=== PATIENT | male | born 1990 | race Caucasian/White ===

== ENCOUNTER 2020-11-01 09:38 | Emergency (ER) | payer OTHER, SELFPAY ==
[2020-11-01 09:53] VITALS: BP 147/75; PULSE 90; RESP 18; TEMP 36.9; O2SAT 98
--- NOTE | 2020-11-01 09:56 | ED.GENADULT ---
HPI - General Adult General Chief complaint: Skin/Abscess/Foreign Body Stated complaint: Rash and itching on Legs Time Seen by Provider: 11/01/20 09:57 Source: patient and RN notes reviewed Mode of arrival: ambulatory Limitations: no limitations History of Present Illness HPI narrative: 30-year-old male presents with complaints of red, raised, itching, burning, rash to bilateral lower legs and several areas to the left arm for the past 7 days. ?Abe reports doing yard work (cutting grass and pulling weeds) on Sunday or prior to the start of the rash, notices a rash 1-2 days later with increasing rash and itching daily. ?Benadryl, Hydrocortisone cream, diaper rash, and calamine lotion without relief. Denies new detergent, personal hygiene products, or laundry detergent. ?No new foods or medications. ?No swelling, bleeding, or drainage. ?Denies fever or chills, headaches, weakness, fatigue, myalgia, facial swelling, or tongue swelling. ?Denies chest pain or dyspnea. Denies nausea, vomiting, and abdominal pain. ?Tolerating liquids well. ?Remains active. ?The patient reports he has not been diagnosed with COVID-19. ?The patient reports he received 2 COVID-19 vaccines, name?of vaccines unknown at this time.? The patient reports he is not waiting for the results of a COVID-19 lab test. ?The patient reports he does not have a new or worsening cough or shortness of breath. ?The patient reports he does not have any rhinorrhea, congestion, loss of taste or smell, sore throat, and diarrhea. ?Denies recent traveling. ?Denies concerns for COVID-19 or exposures. ?At this time, the patient is not suspected of having COVID-19.? Some parts of this dictation were generated by voice recognition software and may contain typographical and/or grammatical inaccuracies. Related Data Home Medications Medication Instructions Recorded Confirmed No Home Medications 11/01/20 11/01/20 Allergies Allergy/AdvReac Type Severity Reaction Status Date / Time NKDA Allergy Mild Uncoded 01/17/10 11:09 Review of Systems Review of Systems: CONSTITUTIONAL: Denies fever, chills, sweats. EYES: Denies visual changes, redness, discharge. ENT: Denies rhinorrhea, congestion, sore throat, otalgia. CARDIOVASCULAR: Denies chest pain, palpitations, edema. RESPIRATORY: Denies dyspnea, wheezing, cough. GASTROINTESTINAL: Denies abdominal pain, nausea, vomiting, diarrhea. GENITOURINARY: Denies dysuria, hematuria, abnormal discharge. SKIN: Complains of raised, red, burning, and itching rash to bilateral lower extremities and LT arm. Denies drainage. MUSCULOSKELETAL: Denies acute back pain, joint pain, or myalgia. NEUROLOGIC: Denies numbness or focal weakness. PSYCHIATRIC: Denies anxiety or depression. All other systems reviewed are negative, except as documented in HPI. REPLACED BY [facility] Past Medical History Medical History (Updated 11/02/20 @ 00:01 by Jose Arana) No significant past medical history Surgical History Surgical History (Updated 11/01/20 @ 10:16 by NANCY Vyas) History of adenoidectomy History of tonsillectomy Family History Family History (Updated 11/01/20 @ 10:17 by NANCY Vyas) Father Alive and well Mother Rheumatoid arthritis Social History Social History (Updated 11/01/20 @ 10:18 by NANCY Vyas) Smoking status: Never smoker Tobacco type: cigarettes Second hand tobacco smoke exposure: No Alcohol intake: current Substance use: never Substance use type: does not use Gender identity (if verbalized by the patient): Male Comments At time of signature, agree with nurse past medical, surgical, social, and family history. There is no relevant family history pertinent to the presenting complaint. Exam Narrative: GENERAL: This is a well-nourished, well-developed patient, in no apparent distress. Talks in full sentences and ambulates with steady gait without dyspnea. HEAD: Normo
[2020-11-01 10:29] VITALS: BP 160/90
== END 2020-11-01 10:29 | disposition home or self-care (01) ==
PROVIDERS: Emergency Provider Nurse Practitioner Family
DX: L23.7 Allergic contact dermatitis due to plants, except food (principal)
CPT/HCPCS: 99213; G0463

== ENCOUNTER 2020-11-08 08:48 | Outpatient (CLI) | payer OTHER, SELFPAY ==
[2020-11-08 09:25] LABS: Basophils Percent Auto 0.1 % (0.2-1.2); Eosinophils Absolute Auto 0.1 K/mm3 (0-0.3); Hematocrit 44.6 % (42.0-52.0); Hemoglobin 15.4 g/dL (14.0-18.0); Immature Granulocyte Absolute 0.02 K/mm3 (0.00-0.031); Immature Granulocyte Percent A 0.3 % (0-0.5); Lymphocytes Absolute Auto 2.36 K/mm3 (0.9-3.2); Lymphocytes Percent Auto 32.6 % (18.3-44.2); Mean Corpuscular HGB Conc 34.5 g/dl (32-36); Mean Corpuscular Hemoglobin 30.2 pg (26-34); Mean Corpuscular Volume 87.5 fl (80-100); Mean Platelet Volume 8.4 fl (7.4-10.4); Monocytes Absolute Auto 0.5 K/mm3 (0.1-0.6); Monocytes Percent Auto 7.5 % (2.6-8.5); Neutrophils Absolute Auto 4.2 K/mm3 (1.3-6.7); Neutrophils Percent Auto 58.5 % (45.5-73.1); Platelet Count Result 238 k/mm3 (150-375); White Blood Count 7.2 K/mm3 (4.5-10.0)
[2020-11-08 09:28] LABS: Add Urine Microscopic? YES; Appearance Urine Clear (Clear); Bilirubin Urine Negative (Negative); Blood Urine Negative (Negative); Color Urine Yellow (Yellow); Glucose Urine UA Negative (Negative); Ketones Urine Negative (Negative); Leukocyte Esterase Ur Negative LEU/UL (NEGATIVE); Mucus Urine Rare /lpf; Nitrate Urine Negative (Negative); Protein Urine 1+ mg/dL (Negative); RBC Urine 0-2 /hpf (0-2); Specific Grav Ur 1.025 (1.001-1.035); Urobilinogen Urine Negative mg/dL (<2.0); WBC Urine 0-3 /hpf (0-3)
[2020-11-08 09:51] LABS: Alanine Aminotransferase 21 U/L (4-50); Albumin Level 4.5 g/dL (3.5-5.1); Alkaline Phosphatase 57 U/L (38-126); Anion Gap 7 mmol/L (8-16); Aspartate Amino Transferase 18 U/L (17-59); Bilirubin,Total 0.6 mg/dL (0.2-1.3); Blood Urea Nitrogen 19 mg/dL (9-20); Calcium 9.6 mg/dL (8.4-10.2); Carbon Dioxide 31 mmol/L (22-30); Chloride 96 mmol/L (98-107); Cholesterol 129 mg/dL (0-200); Estimated Glomerular Filt Rate > 60; Glucose 94 mg/dL (65-110); HDL Direct 60 mg/dL; Potassium 3.8 mmol/L (3.4-5.0); Sodium 134 mmol/L (137-145); Triglycerides 73 mg/dL (<150)
[2020-11-08 10:02] LABS: LDL Cholesterol Direct 52 mg/dL
[2020-11-08 10:20] LABS: Thyroid Stimulating Hormone 0.682 uIU/mL (0.465-4.680)
== END 2020-11-08 08:49 | disposition home or self-care (01) ==
PROVIDERS: PCP Family Medicine; Visit Provider Family Medicine
DX: I10 Essential (primary) hypertension (principal); Z13.220 Encounter for screening for lipoid disorders
CPT/HCPCS: 36415; 80053; 80061; 81001; 84443; 85025

== ENCOUNTER 2021-11-29 09:22 | Outpatient (CLI) | payer OTHER, SELFPAY ==
[2021-11-29 09:35] LABS: Basophils Percent Auto 0.2 % (0.2-1.2); Eosinophils Absolute Auto 0.2 K/mm3 (0-0.3); Eosinophils Percent Auto 3.5 % (0-4.4); Hematocrit 44.3 % (42.0-52.0); Hemoglobin 14.8 g/dL (14.0-18.0); Immature Granulocyte Absolute 0.01 K/mm3 (0.00-0.031); Immature Granulocyte Percent A 0.2 % (0-0.5); Lymphocytes Absolute Auto 1.79 K/mm3 (0.9-3.2); Lymphocytes Percent Auto 28.4 % (18.3-44.2); Mean Corpuscular HGB Conc 33.4 g/dl (32-36); Mean Corpuscular Hemoglobin 30.5 pg (26-34); Mean Corpuscular Volume 91.3 fl (80-100); Mean Platelet Volume 8.4 fl (7.4-10.4); Monocytes Absolute Auto 0.6 K/mm3 (0.1-0.6); Monocytes Percent Auto 9.7 % (2.6-8.5); Neutrophils Absolute Auto 3.7 K/mm3 (1.3-6.7); Platelet Count Result 203 k/mm3 (150-375); Red Blood Count 4.85 M/mm3 (4.6-6.20); Red Cell Distribution Width 12.7 % (11.5-14.5); White Blood Count 6.3 K/mm3 (4.5-10.0)
[2021-11-29 09:54] LABS: Alanine Aminotransferase 25 U/L (6-50); Albumin Level 4.5 g/dL (3.5-5.1); Alkaline Phosphatase 67 U/L (38-126); Anion Gap 8 mmol/L (8-16); Aspartate Amino Transferase 28 U/L (17-59); Bilirubin,Total 0.5 mg/dL (0.2-1.3); Blood Urea Nitrogen 18 mg/dL (9-20); Calcium 9.4 mg/dL (8.4-10.2); Carbon Dioxide 31 mmol/L (22-30); Chloride 101 mmol/L (98-107); Estimated Glomerular Filt Rate 59; Glucose 81 mg/dL (65-110); Potassium 4.2 mmol/L (3.4-5.0); Sodium 140 mmol/L (137-145)
[2021-11-29 10:22] LABS: Free T4 Free Thyroxine 1.07 ng/mL (0.78-2.19)
[2021-11-29 10:35] LABS: Thyroid Stimulating Hormone 0.506 uIU/mL (0.465-4.680); Total Triiodothyronine (T3) 0.97 NG/ML (0.97-1.69)
== END 2021-11-29 09:23 | disposition home or self-care (01) ==
PROVIDERS: PCP Family Medicine; Visit Provider Nurse Practitioner Gerontology
DX: I10 Essential (primary) hypertension (principal)
CPT/HCPCS: 36415; 80053; 84439; 84443; 84480; 85025

== ENCOUNTER 2021-12-14 09:33 | Outpatient (CLI) | payer OTHER, SELFPAY ==
[2021-12-14 10:02] LABS: Anion Gap 12 mmol/L (8-16); Blood Urea Nitrogen 15 mg/dL (9-20); Calcium 9.6 mg/dL (8.4-10.2); Carbon Dioxide 32 mmol/L (22-30); Chloride 98 mmol/L (98-107); Estimated Glomerular Filt Rate > 60; Glucose 98 mg/dL (65-110); Potassium 4.4 mmol/L (3.4-5.0); Sodium 142 mmol/L (137-145)
== END 2021-12-14 09:34 | disposition home or self-care (01) ==
PROVIDERS: PCP Family Medicine; Visit Provider Nurse Practitioner Gerontology
DX: R79.89 Other specified abnormal findings of blood chemistry (principal)
CPT/HCPCS: 36415; 80048

== ENCOUNTER 2024-02-18 07:10 | Outpatient (CLI) | payer OTHER, SELFPAY ==
[2024-02-18 07:51] LABS: Basophils Percent Auto 0.2 % (0.2-1.2); Eosinophils Absolute Auto 0.3 K/mm3 (0-0.3); Eosinophils Percent Auto 7.5 % (0-4.4); Hematocrit 43.6 % (42.0-52.0); Hemoglobin 14.7 g/dL (14.0-18.0); Immature Granulocyte Absolute 0.01 K/mm3 (0.00-0.031); Immature Granulocyte Percent A 0.2 % (0-0.5); Lymphocytes Absolute Auto 1.85 K/mm3 (0.9-3.2); Mean Corpuscular HGB Conc 33.7 g/dl (32-36); Mean Corpuscular Hemoglobin 30.6 pg (26-34); Mean Corpuscular Volume 90.6 fl (80-100); Mean Platelet Volume 8.5 fl (7.4-10.4); Monocytes Absolute Auto 0.4 K/mm3 (0.1-0.6); Monocytes Percent Auto 8.6 % (2.6-8.5); Neutrophils Absolute Auto 1.8 K/mm3 (1.3-6.7); Neutrophils Percent Auto 41.5 % (45.5-73.1); Platelet Count Result 211 k/mm3 (150-375); Red Blood Count 4.81 M/mm3 (4.6-6.20); Red Cell Distribution Width 12.6 % (11.5-14.5); White Blood Count 4.4 K/mm3 (4.5-10.0)
[2024-02-18 08:20] LABS: LDL Cholesterol Direct 55 mg/dL
[2024-02-18 08:28] LABS: Alanine Aminotransferase 34 U/L (6-50); Albumin Level 4.3 g/dL (3.5-5.1); Alkaline Phosphatase 60 U/L (38-126); Anion Gap 3 mmol/L (4-12); Aspartate Amino Transferase 26 U/L (17-59); Bilirubin,Total 0.6 mg/dL (0.2-1.3); Blood Urea Nitrogen 20 mg/dL (9-20); Calcium 9.2 mg/dL (8.4-10.2); Carbon Dioxide 32 mmol/L (22-30); Chloride 101 mmol/L (98-107); Cholesterol 160 mg/dL (0-200); Estimated Glomerular Filt Rate > 60; Glucose 98 mg/dL (65-110); HDL Direct 61 mg/dL; Potassium 4.3 mmol/L (3.4-5.0); Sodium 136 mmol/L (137-145); Triglycerides 116 mg/dL (<150)
== END 2024-02-18 07:11 | disposition home or self-care (01) ==
PROVIDERS: PCP Family Medicine; Visit Provider Student in an Organized Health Care Education/Training Program
DX: I10 Essential (primary) hypertension (principal)
CPT/HCPCS: 36415; 80053; 80061; 85025

== ENCOUNTER 2024-02-28 08:51 | Outpatient (CLI) | payer OTHER, SELFPAY | END 2024-02-28 08:52 | disposition home or self-care (01) | LOC: ANHAUDIO 08:52 | PROVIDERS: PCP Family Medicine; Visit Provider Physician Assistant | DX: H91.90 Unspecified hearing loss, unspecified ear (principal) | CPT/HCPCS: 92557; 92567 ==

== ENCOUNTER 2024-10-03 08:29 | Outpatient (CLI) | payer OTHER, SELFPAY ==
--- OUTSIDE RECORDS SUMMARY | 2024-10-03 08:33 | XMS_ITS | Encounter Summary ---
Author Organization [facility] Address [address] [place] [address] Phone Care Team Providers Care Wind Turbine Performance Engineer Name Role Phone Provider, None Primary Care Provider Unavailabl e Encounter Details Date Type Department Care Team (Late st Contact Info) Description 11/02/2021 Lab Requisition [facility] [address] [place] [id number] Carin Fang, BATTERBOARD SETTER, TAP PULLER [address] [place] [address] Encounter for pre-employment examination Social History Tobacco Use Types Packs/Day Years Used Date Smoking Tobacco: Never Assessed Sex and Gender Information Value Date Recorded Sex Assigned at Not on file Legal Sex Male 4:28 PM CDT Gender Identity Not on file Sexual Orientation Not on file COVID-19 Exposure Response Date Recorded In the last 10 days, have yo u been in contact with someone who was confirmed or suspected to have Coronavirus/COVID-19? No / Unsure 11/02/2021 9:49 AM CDT documented as of this encounter Plan of Treatment Not on file documented as of this encounter Procedures Procedure Name Priority Date/Time Associated Diagnosis Comments QUANTIFERON-TB GOLD PLUS Routine 11/02/2021 10:00 AM CDT Encounter for pre-employment examination MMRV PANEL Routine 11/02/2021 10:00 AM CDT Encounter for pre-employment examination MUMPS IGG Routine 11/02/2021 10:00 AM CDT Encounter for pre-employment examination HERPES ZOSTER (VARICELLA) IGG Routine 11/02/2021 10:00 AM CDT Encounter for pre-employment examination RUBEOLA (MEASLES) IGG Routine 11/02/2021 10:00 AM CDT Encounter for pre-employment examination RUBELLA IMMUNITY IGG Routine 11/02/2021 10:00 AM CDT Encounter for pre-employment examination HEPATITIS B SURFACE ANTIBODY (HBSAB) Routine 11/02/2021 10:00 AM CDT Encounter for pre-employment examination documented in this encounter Results * HERPES ZOSTER (VARICELLA) IGG (11/02/2021 10:00 AM CDT) VARICELLA ZOSTER IGG 4.7 >=1.1 AI 11/02/2021 11:[address] [facility] Blood No Phlebotomy Charged / Unknown 11/02/2021 10:00 AM CDT 11/02/2021 12:[address] [facility] - 11/02/2021 11:11 PM CDT <= 0.8 Negative. No detectable VZV IgG antibody. 0.9 - 1.0 Equivocal >=1.1 Positive Antibody testing was performed by multiplex flow immunoassay on the [employer] platform. us Carin Fang BATTERBOARD SETTER, TAP PULLER IMMUNOLOGY ORDERABL ES Final Result Performing Organization Address City/State/[facility] Co de Phone Number [facility] [address] [place] [address], * RUBEOLA (MEASLES) IGG (11/02/2021 10:00 AM CDT) MEASLES AB IGG 4.0 >=1.1 AI 11/02/2021 11:[address] [facility] Blood No Phlebotomy Charged / Unknown 11/02/2021 10:00 AM CDT 11/02/2021 12:[address] [facility] - 11/02/2021 11:11 PM CDT <= 0.8 Negative. No detectable Measles IgG antibody. 0.9 - 1.0 Equivocal >=1.1 Positive Antibody testing was performed by multiplex flow immunoassay on the [employer] platform. us Carin L Behrends BATTERBOARD SETTER, TAP PULLER IMMUNOLOGY ORDERABL ES Final Result Performing Organization Address [facility] Co de Phone Number [facility] [address] [place] [address], [place] * RUBELLA IMMUNITY IGG (11/02/2021 10:00 AM CDT) RUBELLA IMMUNITY Immune Immune, Invalid 11/02/2021 11:[address] [facility] Blood No Phlebotomy Charged / Unknown 11/02/2021 10:00 AM CDT 11/02/2021 12:[address] [facility] - 11/02/2021 11:11 PM CDT Antibody testing was performed by multiplex flow immunoassay on the [employer] platform. us Braune Jared Behnathalie BATTERBOARD SETTER, TAP PULLER CHEMISTRY ORDERABLE S Final Result Performing Organization Address [facility] Co de Phone Number [facility] [address] [place] [address], [place] * MUMPS IGG (11/02/2021 10:00 AM CDT) Mumps Ab IgG 1.3 >=1.1 AI 11/02/2021 11:[address] [facility] Blood No Phlebotomy Charged / Unknown 11/02/2021 10:00 AM CDT 11/02/2021 12:[address] [facility] - 11/02/2021 11:11 PM CDT <= 0.8 Negative. No detectable Mumps IgG antibody. 0.9 - 1.0 Equivocal >=1.1 Positive Antibody testing was performed by multiplex flow immunoassay on the [employer] platform. us Carin L Behrends BATTERBOARD SETTER, TAP PULLER IMMUNOLOGY ORDERABL ES Final Result [facility] [address] [place] [address], * QUANTIFERON-TB GOLD PLUS (11/02/2021 10:00 AM CDT) NIL CONTROL 0.01 <8.01 IU/mL 11/05/2021 8:[address] [facility] TB ANTIGEN 1 0.00 <0.35 IU/mL 11/05/2021 8:[address] [facility] TB ANTIGEN 2 0.00 <0.35 IU/mL 11/05/2021 8:[address] [facility] MITOGEN CONTROL 9.48 >0.49 IU/mL 11/06/19 8:[address] [facility] INTEPRETATION TB NEGATIVE NEGATIVE, NEGATIVE (TB antigen response less than 25% of internal negative control value) 11/05/2021 8:[address] [facility] Comment:No immune response t o Mycobacterium tuberculosis antigens was noted. M. tuberculosis infection unlikely. Blood No Phlebotomy Charged / Unknown 11/02/2021 10:00 AM CDT 11/02/2021 12:[address] [facility] - 11/05/2021 8:31 AM CDT A POSITIVE QUANTIFERON-TB GOLD PLUS RESULT SHOULD NOT BE THE SOLE OR DEFINITIVE BASIS FOR DETERMINING INFECTION WITH M.TUBERCULOSIS. Diagnosing or excluding tuberculosis disease, and assessing the probability of LTBI, requires a combination of epidemiological, historical, medical and diagnostic findings (e.g., acid fast bacilli (AFB) smear and culture, chest xray) that should be taken into account when interpreting QFT-Plus results. Furthermore, the magnitude of the measured gamma interferon level cannot be correlated to stage or degree of infection, level of immune responsiveness, or likelihood for progression to active disease. The Nil control adjusts for background (e.g., elevated levels of circulating gamma interferon or presence of heterophile antibodies). The Mitogen control serves as an internal positive control and verifies each specimen tested can produce a gamma interferon response. Low mitogen may occur with insufficient lymphocytes, reduced lymphocyte activity due to improper specimen handling, filling/mixing of the mitogen tube, or inability of the patient's lymphocytes to generate gamma interferon. Infection with other Mycobacteria, including M. kansasii, M. szulgai, and M. marinum, may cause false positive results. A negative QuantiFERON-TB Gold Plus result does not preclude the possibility of M. tuberculosis infection or tuberculosis disease: false negative results can be due to incorrect blood sample collection/ improper handling of the specimen, stage of infection (e.g., specimen obtained prior to the development of cellular immune response), co-morbid conditions which affect immune function, or other individual immunological factors. The minimum number of lymphocytes required for a reliable test has not been established and may also be variable. Diagnostic testing for Mycobacterium tuberculosis using Interferon Gamma Release Assays should follow applicable published guidelines, including when testing in populations such as children, women, and HIV-infected or otherwise immunocompromised individuals. https://www.cdc.gov/tb/publications/guidelines/testing.htm Carin Fang APRN, CNP IMMUNOLOGY ORDERABL ES Final Result Performing Organization Address City/[facility] Co de Phone Number [facility] [address] [place] [address], [place] * HEPATITIS B SURFACE ANTIBODY (HBSAB) (11/02/2021 10:00 AM CDT) HEPATITIS B SURFACE ANTIBODY 44.50 mIU/mL [facility] ARCH [id number] B 11/02/2021 11:[address] [facility] Comment: Detected Range: >12.00 Individual is considered immune to HBV infection Blood No Phlebotomy Charged / Unknown 11/02/2021 10:00 AM CDT 11/02/2021 12:41 PM CDT Carin Fang APRN, CNP CHEMISTRY ORDERABLE S Final Result Performing Organization Address City/[facility] Co de Phone Number [facility] [address] [place] [address], [place] documented in this encounter Visit Diagnoses Diagnosis Encounter for pre-employment examination Health examination of defined subpopulation documented in this encounter Care Teams Wind Turbine Performance Engineer Relationship Specialty Start Date End Date Provider, None [place] PCP - General 11/02/21 documented as of this encounter
--- OUTSIDE RECORDS SUMMARY | 2024-10-03 08:33 | XMS_ITS | Clinical Summary ---
Author Organization [facility] Address [address] [place] [address] Phone Care Team Providers Care Division Chief Name Role Phone Provider, None Primary Care Provider Unavailabl e Social History Tobacco Use Types Packs/Day Years Used Date Smoking Tobacco: Never Assessed Sex and Gender Information Value Date Recorded Sex Assigned at Not on file Legal Sex Male 4:28 PM CDT Gender Identity Not on file Sexual Orientation Not on file Plan of Treatment Health Maintenance Due Date Last Done Comments Hepatitis C Virus (HCV) Screening 1989 TdaP Immunization 1989 Human Papillomavirus (HPV) Immunization (1 - Male 3-dose series) 2004 Hepatitis B Immunization (1 of 3 - 19+ 3-dose series) 2008 SARS-COV-2 Immunization ( season) 2023 Influenza Immunization (#1) 11/17/202412/17, 12/27/2017, 01/18/2016 Respiratory Syncytial Virus (RSV) Immunization (Adult) (1 - 1-dose 75+ series) 2064 Meningococcal Immunization (ACWY) Aged Out No longer eligible b ased on patient's age to complete this topic Pneumococcal Immunization Combined Aged Out No longer eligible b ased on patient's age to complete this topic Rotavirus Immunization Aged Out No lo nger eligible based on patient's age to complete this topic Care Teams Division Chief Relationship Specialty Start Date End Date Provider, None [place] PCP - General 11/02/21
--- OUTSIDE RECORDS SUMMARY | 2024-10-03 08:34 | XMS_ITS | Clinical Summary ---
Author Organization [facility] Address [address] [place] [address] Care Team Providers Care Senior Design Engineering Specialist Name Role Phone Myranda Piper NP Primary Care Provider [phone] Allergies No known active allergies Medications No known medications Active Problems Problem Noted Date Diagnosed Date Impaired hearing 02/05/2019 Assessment & Plan (02/05/2019 9:38 AM SINGER BACK TENDER): Referred to audiology Family history of colon cancer 05/29/2018 Overview (05/29/2018): Maternal grandmother Family history of heart failure 05/29/2018 Family history of polyps in the colon 05/29/2018 Overview (05/29/2018): Mother Class 1 obesity due to exces s calories without serious comorbidity with body mass index (BMI) of 30.0 to 30.9 in adult 05/29/2018 Assessment & Plan (05/29/2018 8:45 AM CDT): Obesity is newly identified. Discussed the patient's BMI. The BMI is above average; BMI management plan is completed. General weight loss/lifestyle modification strategies discussed (elicit support from others; identify saboteurs; non-food rewards, etc). Immunizations Immunization Administration Dates Next Due Influenza, Quadrivalent, Nathalie l Culture-based MDCK, Preservative Free, Antibiotic Free, Intramuscular 12/27/2017 Influenza, Quadrivalent, Split, Intramuscular Influenza, Quadrivalent, Spl it, Preservative Free, Intramuscular 12/26/2018 Surgical History Surgery Date Site/Laterality Comments TONSILLECTOMY Tonsillectomy Family History Medical History Relation Name Comments Heart disease Paternal Grandfather Relation Name Status Comments Father Alive Mother Alive Paternal Grandfather Social History Tobacco Use Types Packs/Day Years Used Date Smoking Tobacco: Former Smokeless Tobacco: Never PHQ-2 Answer Date Recorded PHQ-2 Score 0 11/08/2018 Sex and Gender Information Value Date Recorded Sex Assigned at Not on file Legal Sex Male 6:50 AM SINGER BACK TENDER Gender Identity Not on file Sexual Orientation Not on file Obstetrics History Last Filed Vital Signs Vital Sign Reading Time Taken Comments Blood Pressure 122/78 03/31/2019 1:35 PM SINGER BACK TENDER Pulse 69 03/31/2019 1:35 PM SINGER BACK TENDER Temperature - - Respiratory Rate 12 05/29/2018 8:03 AM CDT Oxygen Saturation 100% 03/31/2019 1:35 PM SINGER BACK TENDER Inhaled Oxygen Concentration - - Weight 111.1 kg (245 lb) 03/31/2019 1:35 PM SINGER BACK TENDER Height 190.5 cm (6' 3) 03/31/2019 1:35 PM SINGER BACK TENDER Body Mass Index 30.62 03/31/2019 1:35 PM SINGER BACK TENDER Plan of Treatment Not on file Insurance CLAIMS Care Teams Senior Design Engineering Specialist Relationship Specialty Start Date End Date Myranda Piper NP PCP - General Family Medicine 05/23/18
--- OUTSIDE RECORDS SUMMARY | 2024-10-03 08:34 | XMS_ITS | Referral Summary ---
Author Organization [facility] Address [address] [place] [address] Care Team Providers Care Electronic Warfare Operator Name Role Phone Myranda Piper NP Primary Care Provider [phone] Allergies No known active allergies Medications No known medications Active Problems Problem Noted Date Diagnosed Date Impaired hearing 02/05/2019 Assessment & Plan (02/05/2019 9:38 AM AUTOMATIC CAR WASH ATTENDANT): Referred to audiology Family history of colon [...] Quadrivalent, Spl it, Preservative Free, Intramuscular 12/26/2018 Social History Tobacco Use Types Packs/Day Years Used Date Smoking Tobacco: Former Smokeless Tobacco: Never PHQ-2 Answer Date Recorded PHQ-2 Score 0 11/08/2018 Sex and Gender Information Value Date Recorded Sex Assigned at Not on file Legal Sex Male 6:50 AM AUTOMATIC CAR WASH ATTENDANT Gender Identity Not on file Sexual Orientation Not on file Last Filed Vital Signs Vital Sign Reading Time Taken Comments Blood Pressure 122/78 03/31/2019 1:35 PM AUTOMATIC CAR WASH ATTENDANT Pulse 69 03/31/2019 1:35 PM AUTOMATIC CAR WASH ATTENDANT Temperature - - Respiratory Rate 12 05/29/2018 8:03 AM CDT Oxygen Saturation 100% 03/31/2019 1:35 PM AUTOMATIC CAR WASH ATTENDANT Inhaled Oxygen Concentration - - Weight 111.1 kg (245 lb) 03/31/2019 1:35 PM AUTOMATIC CAR WASH ATTENDANT Height 190.5 cm (6' 3) 03/31/2019 1:35 PM AUTOMATIC CAR WASH ATTENDANT Body Mass Index 30.62 03/31/2019 1:35 PM AUTOMATIC CAR WASH ATTENDANT Plan of Treatment Not on file Insurance [facility] CLAIMS Care Teams Electronic Warfare Operator Relationship Specialty Start Date End Date Myranda Piper NP PCP - General Family Medicine 05/23/18
[2024-10-03 09:36] LABS: Alanine Aminotransferase 38 U/L (6-50); Albumin Level 4.8 g/dL (3.5-5.1); Alkaline Phosphatase 53 U/L (38-126); Anion Gap 9 mmol/L (4-12); Aspartate Amino Transferase 41 U/L (17-59); Bilirubin,Total 0.8 mg/dL (0.2-1.3); Blood Urea Nitrogen 16 mg/dL (9-20); Calcium 9.8 mg/dL (8.4-10.2); Carbon Dioxide 30 mmol/L (22-30); Chloride 100 mmol/L (98-107); Estimated Glomerular Filt Rate > 60; Glucose 101 mg/dL (65-110); Potassium 4.9 mmol/L (3.4-5.0); Sodium 139 mmol/L (137-145); Total Protein 7.5 g/dL (6.3-8.2)
[2024-10-03 10:04] LABS: Thyroid Stimulating Hormone Reflex 0.595 uIU/mL (0.465-4.68)
[2024-10-03 10:33] LABS: Hemoglobin A1C 5.4 % (<5.7)
[2024-10-07 10:08] LABS: Free Testosterone (Direct) 12.1 pg/mL (8.7-25.1)
== END 2024-10-03 08:30 | disposition home or self-care (01) ==
LOC: ANHLAB 08:30
PROVIDERS: PCP Family Medicine
DX: N52.9 Male erectile dysfunction, unspecified (principal); I10 Essential (primary) hypertension; E66.9 Obesity, unspecified; R53.83 Other fatigue
CPT/HCPCS: 36415; 80053; 83036; 84402; 84443

== ENCOUNTER 2024-12-04 07:17 | Outpatient (CLI) | payer OTHER, SELFPAY ==
[2024-12-04 08:09] LABS: Alanine Aminotransferase 31 U/L (6-50); Albumin Level 4.4 g/dL (3.5-5.1); Alkaline Phosphatase 66 U/L (38-126); Anion Gap 6 mmol/L (4-12); Aspartate Amino Transferase 28 U/L (17-59); Bilirubin,Total 0.5 mg/dL (0.2-1.3); Blood Urea Nitrogen 19 mg/dL (9-20); Calcium 9.2 mg/dL (8.4-10.2); Carbon Dioxide 31 mmol/L (22-30); Chloride 100 mmol/L (98-107); Estimated Glomerular Filt Rate > 60; Glucose 104 mg/dL (65-110); Potassium 4.3 mmol/L (3.4-5.0); Sodium 137 mmol/L (137-145); Total Protein 6.9 g/dL (6.3-8.2)
== END 2024-12-04 07:18 | disposition home or self-care (01) ==
LOC: ANHLAB 07:18
PROVIDERS: PCP Family Medicine
DX: I10 Essential (primary) hypertension (principal)
CPT/HCPCS: 36415; 80053